=== PATIENT | male | born 1990 | race Caucasian/White ===

== ENCOUNTER 2017-02-13 07:19 | Emergency (ER) | payer OTHER ==
[~2017-02-13] VITALS: Ht 177.8 cm; Wt 101.9 kg
[2017-02-13 07:20] VITALS: BP 179/105
[2017-02-13] MEDS ORDERED: AZITHROMYCIN 250 MG TABLET ONE (07:54)
[2017-02-13] MEDS ORDERED: CEFTRIAXONE 250 MG ONE (07:55)
[2017-02-13] MEDS ORDERED: AZITHROMYCIN 500 MG TABLET PO ONE (08:00)
[2017-02-13] MEDS ORDERED: CEFTRIAXONE 250 MG IM ONE (08:00)
== END 2017-02-13 09:10 | disposition home or self-care (01) ==
LOC: ED 08:40
DX: N34.1 Nonspecific urethritis (principal)
CPT/HCPCS: 81003; 87491; 87591; 96372; 99284; J0696